=== PATIENT | female | born 1990 | race Two or more races ===

== ENCOUNTER 2016-10-08 12:15 | Inpatient (IN) | payer BC ==
[2016-10-08] MEDS ORDERED: AMPICILLIN - 2 GM in SODIUM CHLORIDE 100 ML IVPB ONE (14:10)
--- NOTE | 2016-10-08 14:16 | HP ---
Past Medical History - Admission Chief Complaint: Post dates History of Present Illness: 26 yo @ 40 weeks, gestation, EDC 10/06/16, admitted for induction of labor. She denies any vaginal bleeding nor ROM. History Source: Patient Limitations to Obtaining History: No Limitations - Past Medical History ...: 3 ...Para: 2 - Past Surgical History Past Surgical History: Yes: None Hx Myomectomy: No Hx Transabdominal Cerclage: No - Smoking History Have you smoked in the past 12 months: No - Alcohol/Substance Use Hx Alcohol Use: No History of Substance Use: reports: None - Social History Usual Living Arrangement: Yes: With Spouse History of Recent Travel: No Family Disease History - Family Disease History Family History: Unremarkable Review of Systems - Review of Systems Constitutional: reports: No Symptoms Eyes: reports: No Symptoms HENT: reports: No Symptoms Neck: reports: No Symptoms Cardiovascular: reports: No Symptoms Respiratory: reports: No Symptoms Gastrointestinal: reports: No Symptoms Genitourinary: reports: No Symptoms Breasts: reports: No Symptoms Reported Musculoskeletal: reports: No Symptoms Integumentary: reports: No Symptoms Neurological: reports: No Symptoms Endocrine: reports: No Symptoms Hematology/Lymphatic: reports: No Symptoms Psychiatric: reports: No Symptoms Pain Intensity: 0 Physical Exam - Maternity Constitutional: Yes: Well Nourished Eyes: Yes: Conjunctiva Clear HENT: Yes: Atraumatic Neck: Yes: Supple Cardiovascular: Yes: Regular Rate and Rhythm Lungs: Clear to auscultation - Abdominal Exam/OB Number of Fetuses: Single Presentation: Vertex - Vaginal Exam/OB Vaginal Bleediing: No Dilatation (cm): 4 Effacement (%): 70 Amniotic Membrane Status: Intact Station: -2 - Physical Exam Integumentary: Yes: WNL ...Motor Strength: WNL Psychiatric: Yes: Alert, Oriented Problem List - Problems (1) Post-dates Code(s): O48.0 - POST-TERM Qualifiers: Post-term type: 40-42 weeks gestation Qualified Code(s): O48.0 - Post-term Assessment/Plan Post dates Admit to L&D Pitocin augmentation Anticipate
[2016-10-08] MEDS: DEXTROSE 5%-LACTATED RINGERS 1,000 ML IV SCH ×2 (14:45→18:30)
[2016-10-08 15:48] LABS: BASOPHIL 0.5 % (0-2.0); EOSINOPHIL 0.3 % (0-4.5); MCH 32.5 pg (25.7-33.7); MCHC 34.7 g/dl (32.0-36.0); MEAN CELL VOLUME 93.7 fl (80-96); MEAN PLT VOLUME 7.9 fl (7.5-11.1); NEUTROPHILS 77.8 % (42.8-82.8); PLATELET COUNT 204 K/MM3 (134-434); RDW 15.5 % (11.6-15.6); WHITE BLOOD COUNT 7.8 K/mm3 (4.0-10.0)
[2016-10-08 15:59] LABS: ANION GAP 11 (8-16); CALCIUM 8.3 mg/dL (8.5-10.1); CO2 22 mmol/L (21-32); CREATININE 0.3 mg/dL (0.55-1.02); GLUCOSE,RANDOM 86 mg/dL (74-106)
[2016-10-08 16:00] LABS: ACTIVATED PTT 27.1 SECONDS (26.9-34.4)
[2016-10-08 17:19] VITALS: BMI 27.9
--- NOTE | 2016-10-08 17:53 | PN ---
Ante-Partal Exam - Subjective Vital Signs: Vital Signs Temperature 98.1 F 10/08/16 15:00 Pulse Rate 86 10/08/16 17:00 Respiratory Rate 20 10/08/16 17:00 Blood Pressure 113/63 10/08/16 17:00 O2 Sat by Pulse Oximetry (%) Bleeding: No Headache: No Visual changes: No Right upper quadrant pain: No - Contractions Contractions: Yes Regularity: Regular Intensity: Mild/Mod Monitor Mode: External - Exam during Labor Heart Rate: 150 Variability: Minimal Heart Rate Location: Midline Category: I Monitor Accelerations: Absent Monitor Decelerations: None Exam: Vaginal Dilatation (cm): 4 Effacement (%): 50 Amniotic Membrane Status: Ruptured Nitrazine Test: Positive Amniotic Fluid: Clear Presentation: Vertex Station: -2 - Assessment/Plan Assessment/Plan: as above expect
[2016-10-08] MEDS: AMPICILLIN - 1 GM in SODIUM CHLORIDE 100 ML IVPB SCH (18:11)
--- NOTE | 2016-10-08 19:59 | PN ---
Ante-Partal Exam - Subjective Vital Signs: Vital Signs Temperature 98.6 F 10/08/16 18:00 Pulse Rate 79 10/08/16 19:00 Respiratory Rate 20 10/08/16 19:00 Blood Pressure 120/60 10/08/16 19:00 O2 Sat by Pulse Oximetry (%) Bleeding: No Headache: No Visual changes: No Right upper quadrant pain: No - Contractions Contractions: Yes Regularity: Regular Intensity: Mild/Mod Monitor Mode: External - Exam during Labor Heart Rate: 150 Variability: Moderate Category: I Monitor Accelerations: Present Monitor Decelerations: None Exam: Vaginal Dilatation (cm): 5 Effacement (%): 50 Nitrazine Test: Positive Amniotic Fluid: Clear Meconium Staining: Light Presentation: Vertex Station: -1 - Assessment/Plan Assessment/Plan: as above expect
[2016-10-08] MEDS ORDERED: PROMETHAZINE HCL 25 MG/1 ML VIAL IVPB PRN (21:20)
[2016-10-08] MEDS ORDERED: BUTORPHANOL TARTRATE 1 MG/ML VIAL IVPUSH PRN (21:20)
--- NOTE | 2016-10-08 21:20 | PN ---
Ante-Partal Exam - Subjective Vital Signs: Vital Signs Temperature 98.6 F 10/08/16 18:00 Pulse Rate 83 10/08/16 20:00 Respiratory Rate 20 10/08/16 20:00 Blood Pressure 128/62 10/08/16 20:00 O2 Sat by Pulse Oximetry (%) Bleeding: No Headache: No Visual changes: No Right upper quadrant pain: No - Contractions Contractions: Yes Regularity: Regular Intensity: Mild/Mod Monitor Mode: External - Exam during Labor Heart Rate: 150 Variability: Moderate Heart Rate Location: Midline Category: I Monitor Accelerations: Present Monitor Decelerations: Variable Exam: Vaginal Dilatation (cm): 6 Amniotic Membrane Status: Ruptured Nitrazine Test: Positive Amniotic Fluid: Clear Meconium Staining: Light Presentation: Vertex Station: -1 - Assessment/Plan Assessment/Plan: continue care will give stadol x 1
[2016-10-08] MEDS ORDERED: ACETAMINOPHEN 325 MG TABLET (FP) PO PRN (22:39)
[2016-10-08] MEDS ORDERED: BENZOCAINE 20% 57 GM BOTTLE TP PRN (22:39)
[2016-10-08] MEDS ORDERED: METHYLERGONOVINE MALEATE 0.2 MG/1 ML AMP IM PRN (22:39)
[2016-10-08] MEDS ORDERED: BISACODYL 10 MG SUPP.RECT RC PRN (22:39)
[2016-10-08] MEDS ORDERED: WITCH HAZEL 50% (TUCKS) 40 PAD/JAR PAD TP PRN (22:39)
[2016-10-08] MEDS ORDERED: BENZOCAINE 28 GM HEMORRHOIDAL OINTMENT TP PRN (22:39)
[2016-10-08] MEDS ORDERED: IBUPROFEN 600 MG TABLET (FP) PO PRN (22:39)
--- NOTE | 2016-10-08 22:39 | PN ---
Delivery - Delivery Episiotomy/Laceration: None EBL (cc): 300 Delivery, Single - [place] Feeding Plan Initial Plan: Exclusive throughout hospitalization
[2016-10-08] MEDS ORDERED: OXYTOCIN 20 UNITS in 0.9% NS 1,000 ML IV SCH (22:45)
[2016-10-09] MEDS: AMPICILLIN - 1 GM in SODIUM CHLORIDE 100 ML IVPB SCH ×3 (00:13→07:06)
--- NOTE | 2016-10-09 06:09 | PN ---
Post Progress Note - Subjective Subjective: doing well, no issues, minmal lochia Post Day: 1 Type of Delivery: Vital Signs: Vital Signs Temperature 98.3 F 10/09/16 00:45 Pulse Rate 86 10/09/16 00:45 Respiratory Rate 20 10/09/16 00:45 Blood Pressure 100/59 10/09/16 00:45 O2 Sat by Pulse Oximetry (%) Breast Exam: Yes: Soft Uterus: Yes: Fundus Firm Abdomen/GI: Yes: Abdomen soft Lochia: Yes: Rubra Lochia, amount: Small Extremities: Yes: Calves non-tender Perineum: Yes: Intact Activity: Ambulating - Labs Labs: CBC WBC 7.8 K/mm3 (4.0-10.0) 10/08/16 15:15 RBC 3.91 M/mm3 (3.60-5.2) 10/08/16 15:15 Hgb 12.7 GM/dL (10.7-15.3) 10/08/16 15:15 Hct 36.6 % (32.4-45.2) 10/08/16 15:15 MCV 93.7 fl (80-96) 10/08/16 15:15 MCH 32.5 pg (25.7-33.7) 10/08/16 15:15 MCHC 34.7 g/dl (32.0-36.0) 10/08/16 15:15 RDW 15.5 % (11.6-15.6) 10/08/16 15:15 Plt Count 204 K/MM3 (134-434) 10/08/16 15:15 MPV 7.9 fl (7.5-11.1) 10/08/16 15:15 Neutrophils % 77.8 % (42.8-82.8) 10/08/16 15:15 Lymphocytes % 17.1 % (8-40) 10/08/16 15:15 Monocytes % 4.3 % (3.8-10.2) 10/08/16 15:15 Eosinophils % 0.3 % (0-4.5) 10/08/16 15:15 Basophils % 0.5 % (0-2.0) 10/08/16 15:15 Assessment/Plan continue care oob reg diet
[2016-10-09 08:25] LABS: BASOPHIL 0.4 % (0-2.0); EOSINOPHIL 0.1 % (0-4.5); MCH 31.9 pg (25.7-33.7); MCHC 33.8 g/dl (32.0-36.0); MEAN CELL VOLUME 94.2 fl (80-96); MEAN PLT VOLUME 7.9 fl (7.5-11.1); NEUTROPHILS 82.7 % (42.8-82.8); PLATELET COUNT 193 K/MM3 (134-434); WHITE BLOOD COUNT 12.9 K/mm3 (4.0-10.0)
[2016-10-09] MEDS ORDERED: DIPHTH,PERTUSS(ACELL),TET 0.5 ML DISP.SYRIN IM ONE (10:00)
[2016-10-09 17:42] VITALS: PULSE 85
[2016-10-09] MEDS ORDERED: SENNOSIDES/DOCUSATE COMBO (SENNA PLUS) TABLET (UD) PO PRN (22:00)
[2016-10-09 22:07] VITALS: BP 102/61
--- NOTE | 2016-10-10 09:52 | PN ---
Post Progress Note - Subjective Subjective: no complains Post Day: 2 Type of Delivery: Vital Signs: Vital Signs Temperature 97.8 F 10/09/16 21:00 Pulse Rate 85 10/09/16 21:00 Respiratory Rate 20 10/09/16 21:00 Blood Pressure 102/61 10/09/16 21:00 O2 Sat by Pulse Oximetry (%) Breast Exam: Yes: Soft. No: Engorged Uterus: Yes: Fundus Firm, Fundus below umbilicus, Non-tender Lochia: Yes: Rubra Lochia, amount: Moderate Extremities: Yes: Calves non-tender Perineum: Yes: Intact Activity: Ambulating - Labs Labs: CBC WBC 12.9 K/mm3 (4.0-10.0) H D 10/09/16 07:50 RBC 3.73 M/mm3 (3.60-5.2) 10/09/16 07:50 Hgb 11.9 GM/dL (10.7-15.3) 10/09/16 07:50 Hct 35.1 % (32.4-45.2) 10/09/16 07:50 MCV 94.2 fl (80-96) 10/09/16 07:50 MCH 31.9 pg (25.7-33.7) 10/09/16 07:50 MCHC 33.8 g/dl (32.0-36.0) 10/09/16 07:50 RDW 15.0 % (11.6-15.6) 10/09/16 07:50 Plt Count 193 K/MM3 (134-434) 10/09/16 07:50 MPV 7.9 fl (7.5-11.1) 10/09/16 07:50 Neutrophils % 82.7 % (42.8-82.8) 10/09/16 07:50 Lymphocytes % 11.0 % (8-40) D 10/09/16 07:50 Monocytes % 5.8 % (3.8-10.2) 10/09/16 07:50 Eosinophils % 0.1 % (0-4.5) 10/09/16 07:50 Basophils % 0.4 % (0-2.0) 10/09/16 07:50 Assessment/Plan stable. discharge today.
[2016-10-10 11:05] VITALS: TEMP 98.2
== END 2016-10-10 12:15 | disposition home or self-care (01) | DRG 560 ==
LOC: JDEL 12:15 → JLDR 13:36 → J3W 10-09 01:16
PROVIDERS: ADMIT Obstetrics & Gynecology; ATTEND Obstetrics & Gynecology
PROC: 10E0XZZ Delivery of Products of Conception, External Approach (ICD-10-PCS; principal; 2016-10-08)
PROC: 3E0P7GC Introduction of Other Therapeutic Substance into Female Reproductive, Via Natural or Artificial Opening (ICD-10-PCS; 2016-10-08)
DX: O48.0 Post-term pregnancy (principal); Z3A.40 40 weeks gestation of pregnancy; Z37.0 Single live birth
CPT/HCPCS: 36415; 59409; 80048; 85025; 85610; 85730; 86593; 86850; 86900; 86901; 90715